=== PATIENT | male | born 1940 | race Caucasian/White ===

== ENCOUNTER 2017-02-02 16:56 | Emergency (ER) | payer MEDICARE, OTHER ==
[~2017-02-02] VITALS: Ht 177.8 cm; Wt 94.8 kg
[~2017-02-02 16:56] MED LIST: ACET325T9 PO; ALBU8.5H8 INH; ASPI-630 PO; CARV3.12 PO; CILO100T PO; CIPR500T94 PO; EZET1TAB35 PO; HYDR-2758 PO; KRIL1CAP19 PO; METR500T PO; PROM25TA10 PO; ZOLP10TA PO
[2017-02-02 17:10] VITALS: BP 133/96
[2017-02-02] MEDS ORDERED: IPRATRPIUM/ALBUTEROL 0.5/2.5MG 3 ML NEBU. NEB ONE (17:45)
--- NOTE | 2017-02-02 17:53 | PHYS DOC ---
Past History Past Medical History: CAD, Diverticulitis Past Surgical History: Cholecystectomy Alcohol Use: None Drug Use: None Adult General Chief Complaint Chief Complaint: COUGH HPI HPI Patient is a 76 year old male who presents with complaint of cough and congestion for the past 8 days. The patient states he started having symptoms last weekend. The patient came to the emergency department with his is also being seen for similar symptoms. He states that his daughter had similar symptoms prior to onset. Patient states that he has had productive cough of green sputum and home. Patient has had mild shortness of breath as well especially with exertion. Patient denies any fevers, chest pain, or abdominal pain. Patient has used nebulized albuterol at home with temporary relief of symptoms. Due to persistent symptoms the patient came to the emergency department for evaluation. Review of Systems Review of Systems Constitutional: Denies fever or chills [] Eyes: Denies change in visual acuity, redness, or eye pain [] HENT: Denies nasal congestion or sore throat [] Respiratory: Cough, shortness of breath[] Cardiovascular: Denies chest pain or edema[] GI: Denies abdominal pain, nausea, vomiting, bloody stools or diarrhea [] : Denies dysuria or hematuria [] Musculoskeletal: Denies back pain or joint pain [] Integument: Denies rash or skin lesions [] Neurologic: Denies headache, focal weakness or sensory changes [] Current Medications Current Medications Current Medications Medications (Trade) Dose Ordered Sig/[facility] Start Time Stop Time Status Last Admin Dose Admin Albuterol/ Ipratropium (Duoneb) 6 ml 1X ONCE 02/02/17 17:45 02/02/17 17:50 DC Allergies Allergies Allergies Coded Allergies Type Severity Reaction Last Updated Verified varenicline Allergy Intermediate Photosensitivity 12/08/14 Yes Physical Exam Physical Exam Constitutional: Alert, afebrile, appears in mild distress stress. [] HENT: Normocephalic, atraumatic, bilateral external ears normal, oropharynx moist, no oral exudates, nose normal. [] Eyes: PERRLA, EOMI, conjunctiva normal, no discharge. [] Neck: Normal range of motion, no tenderness, supple, no stridor. [] Cardiovascular:Heart rate regular rhythm, no murmur [] Lungs & Thorax: Moderate restriction of air movement bilaterally, extremity wheezes bilaterally, no rales[] Abdomen: Bowel sounds normal, soft, no tenderness, no masses, no pulsatile masses. [] Skin: Warm, dry, no erythema, no rash. [] Back: No tenderness, no CVA tenderness. [] Extremities: No tenderness, no cyanosis, no clubbing, ROM intact, no edema. [] Neurologic: Alert and oriented X 3, normal motor function, normal sensory function, no focal deficits noted. [] Current Patient Data Vital Signs Vital Signs Date Time Temp Pulse Resp B/P (MAP) Pulse Ox O2 Delivery O2 Flow Rate FiO2 02/02/17 17:10 97.4 93 16 95 Ventilator Lab Results Not performed EKG EKG Not performed[] Radiology/Procedures Radiology/Procedures Two-view chest x-ray interpreted by me: No infiltrate, no effusions, normal cardiac silhouette[] Course & Med Decision Making Course & Med Decision Making Pertinent Labs and Imaging studies reviewed. (See chart for details) Patient given 2 DuoNeb breathing treatments in the emergency department with improvement in symptoms. The patient will be started on oral Levaquin due to chronicity of symptoms and history of chronic lung disease. Advise follow-up with primary doctor in 2 days for reevaluation and return to emergency department for any worsening symptoms. Patient voiced understanding and in agreement with treatment plan. Dragon Disclaimer Dragon Disclaimer This chart was dictated in whole or in part using Voice Recognition software in a busy, high-work load, and often noisy Emergency Department environment. It may contain unintended and wholly unrecognized errors or omissions. Departure Departure: Impression: Primary Impression: Cough Additional Impression: Reactive airway disease Disposition: 01 HOME, SELF-CARE Condition: IMPROVED Referrals: BREA KOO MD (PCP) Patient Instructions: Acute Respiratory Distress Syndrome, Cough, Adult Additional Instructions: Follow-up with your primary doctor in the next 2 days for reevaluation. Be sure to use your nebulizer 1 unit dose of albuterol every 4 hours as needed for wheezing. Return to the emergency department for any worsening symptoms. Scripts Prednisone (PREDNISONE) 50 Mg Tablet 1 TAB PO DAILY, #5 TAB Prov: WERNER BUSH MD 02/02/17 Levofloxacin (LEVAQUIN) 750 Mg Tablet 1 TAB PO DAILY, #5 TAB Prov: WERNER BUSH MD 02/02/17 Problem Qualifiers Additional Impression: Reactive airway disease Asthma severity: mild Asthma persistence: persistent Asthma complication type: uncomplicated Qualified Codes: J45.30 - Mild persistent asthma, uncomplicated WERNER BUSH MD Feb 02, 2017 17:53
[2017-02-02] MEDS ORDERED: LEVO750T31 PO (18:08)
[2017-02-02] MEDS ORDERED: PRED50TA PO (18:08)
[2017-02-02] MEDS ORDERED: levoFLOXacin 750 MG TABLET PO STA (18:09)
--- NOTE | 2017-02-03 08:32 | RAD ---
EXAM: Chest 2 views. HISTORY: Shortness of breath. COMPARISON: 12/08/2014. FINDINGS: Frontal and lateral views of the chest are obtained. There are changes of coronary artery bypass grafting. Cholecystectomy clips are noted. There are no confluent infiltrates. There appear to be emphysematous changes in the apices. There is no pneumothorax or pleural effusion. The heart is not enlarged. IMPRESSION: 1. Chronic obstructive pulmonary disease. No confluent infiltrates.
== END 2017-02-02 18:28 | disposition home or self-care (01) ==
LOC: ER 16:56
DX: J45.30 Mild persistent asthma, uncomplicated (principal); I25.10 Atherosclerotic heart disease of native coronary artery without angina pectoris; Z88.1 Allergy status to other antibiotic agents
CPT/HCPCS: 71020; 94250; 94640; 99284; J7620

== ENCOUNTER → 2018-12-07 | Outpatient (CLI) | payer MEDICARE, OTHER ==
[~2018-12-07] MED LIST changes: +ALBU2.5V8 INH; -ALBU8.5H8 INH; +HYDR-2155 PO; -HYDR-2758 PO; +LEVO750T31 PO; +PRED50TA PO
--- NOTE | 2018-12-07 13:18 | NUR ---
Patient ambulated to Room 123 for outpatient services. Order to bladder scan patient. Patient states he has not urinated for over 1 hour. Pre-void bladder scan: 281ml and post- void bladder scan: 186ml. Will fax results to Dr. Sommers office. Patient ambulated off unit independently at this time.
== END | disposition home or self-care (01) ==
LOC: OPSVCOP 12:51
PROVIDERS: ATTEND Family Medicine
DX: R33.9 Retention of urine, unspecified (principal)
CPT/HCPCS: 51798

== ENCOUNTER → 2019-03-15 | Outpatient (CLI) | payer MEDICARE, OTHER ==
--- NOTE | 2019-03-15 17:18 | RAD ---
CT STUDY OF THE ABDOMEN AND PELVIS WITHOUT CONTRAST CLINICAL INDICATIONS: Epigastric pain. Change in bowel habits. TECHNIQUE: Noncontrast helical CT scanning of the abdomen and pelvis was performed. Without contrast, the sensitivity to detect organ pathology and GI tract pathology is decreased. PQRS compliance Statement One or more of the following individualized dose reduction techniques were utilized for this study: 1. Automated exposure control 2. Adjustment of the mA and/or kV according to patient size 3. Use of iterative reconstruction technique COMPARISON: December 08, 2014. FINDINGS: The liver and spleen and pancreas are unremarkable on this noncontrast study. No adrenal mass is evident. Vascular calcification of the right renal hilus is seen. Otherwise no renal stone or ureteral stone or hydronephrosis or hydroureter is seen. No renal mass is seen on this noncontrast study. There is chronic perinephric inflammatory stranding. This is unchanged. No perinephric fluid collection is seen. No adrenal mass is evident. Calcified atheromatous disease of the abdominal aorta is seen. No focal aneurysmal dilatation is seen. No enlarged abdominal or pelvic lymphadenopathy is evident. Urinary bladder wall is smooth. Prostate gland is mildly enlarged measuring 5.2 cm transversely. There is moderate fecal retention throughout the colon and rectum. There is severe sigmoid diverticulosis. Diverticulosis of the descending colon is seen as well. No pericolonic inflammatory change is seen and therefore no diverticulitis is evident. The appendix and terminal ileum are unremarkable. No obstructive bowel pattern is seen. No free air or free fluid or mesenteric edema is seen. No lung base consolidation is evident. No lytic process is seen. IMPRESSION: Colonic diverticulosis without diverticulitis. Moderate fecal retention. There is thickening of the distal antrum of the stomach and throughout the duodenal wall with intramural fat. This may be seen with chronic inflammation from gastritis/duodenitis or peptic ulcer disease. This has been seen previously. No acute abnormality of the abdomen or pelvis is seen. Mild enlargement of the prostate gland. Electronically signed by: Ford Ibrahim MD (03/15/2019 5:15 PM) [facility]
== END | disposition home or self-care (01) ==
LOC: CT 16:35
PROVIDERS: ATTEND Family Medicine
DX: K57.30 Diverticulosis of large intestine without perforation or abscess without bleeding (principal); N28.89 Other specified disorders of kidney and ureter; I70.0 Atherosclerosis of aorta; K59.09 Other constipation; D45 Polycythemia vera; R94.5 Abnormal results of liver function studies
CPT/HCPCS: 74176

== ENCOUNTER → 2021-05-24 | Outpatient (CLI) | payer MEDICARE, OTHER ==
--- NOTE | 2021-05-24 15:36 | RAD ---
, Small bowel Exam: CT abdomen/pelvis without intravenous contrast Indication: Enterocolitis Comparison: CT abdomen pelvis 03/15/2019 Technique: Helical CT imaging performed of the abdomen and pelvis without the use of intravenous cont rast. Sagittal and coronal reformats were obtained. One or more of the following individualized dose reduction techniques were utilized for this examinat ion: 1. Automated exposure control 2. Adjustment of the mA and/or kV according to patient size 3. Use of iterative reconstruction technique. Findings: Inherently limited evaluation without intravenous contrast. Lower chest: Mild interstitial changes in the posterior lower lobes. The heart is normal in size. Med leonidas sternotomy wires are noted. Liver: Normal noncontrast appearance of the liver. Gallbladder/Biliary Tree: Gallbladder is surgically absent. Bile ducts are normal. Pancreas: Mild fatty atrophy of the pancreas. Spleen: Normal. Adrenal Glands: Normal. Kidneys/Ureters/Bladder: Kidneys are normal in size. No nephrolithiasis or hydronephrosis. There are vascular calcifications of the right renal hilum. Ureters and bladder are normal Reproductive Organs: The prostate gland is mildly enlarged. Stomach, small bowel, and colon: Stomach, small bowel, and appendix are normal. There is sigmoid dive rticulosis without acute diverticulitis. There is mild colonic wall thickening and prominence of muco francis fat at the hepatic flexure. Vasculature: There is infrarenal abdominal aortic ectasia measuring 2.2 cm, unchanged. There is moder ate calcified aortic atherosclerosis. Lymph Nodes: No lymphadenopathy. Peritoneum and retroperitoneum: No free fluid or free air. Bones: There is 3 mm retrolisthesis of L3 on L4. Mild degenerative disc disease. Miscellaneous: None. IMPRESSION: 1. New segment of mild colonic wall thickening with prominent submucosal fat at the hepatic flexure suggesting chronic inflammation. There is also relative narrowing of this segment of bowel but no zac dence of obstruction or visualized mass. 2. Unchanged prominent submucosal fat in the duodenum. 3. Sigmoid diverticulosis without acute diverticulitis. 4. Unchanged infrarenal abdominal aortic ectasia. Electronically signed by: Marcella Rabago MD (05/24/2021 3:34 PM) [id number]
== END ==
LOC: CT 13:00
PROVIDERS: ATTEND Family Medicine
DX: I77.811 Abdominal aortic ectasia (principal); K57.30 Diverticulosis of large intestine without perforation or abscess without bleeding; K86.89 Other specified diseases of pancreas; M51.36 Other intervertebral disc degeneration, lumbar region; I70.0 Atherosclerosis of aorta; K90.3 Pancreatic steatorrhea; A04.71 Enterocolitis due to Clostridium difficile, recurrent
CPT/HCPCS: 74176